=== PATIENT | male | born 2000 | race Caucasian/White ===

== ENCOUNTER → 2020-10-04 13:55 | Outpatient (BNVA) | payer MEDICAID, SELFPAY | PROVIDERS: Visit Provider Counselor Professional | DX: F33.8 Other recurrent depressive disorders (principal); Z63.9 Problem related to primary support group, unspecified | CPT/HCPCS: 90791 ==

== ENCOUNTER → 2020-11-15 08:36 | Outpatient (BNVA) | payer MEDICAID, SELFPAY | PROVIDERS: Visit Provider Psychiatry & Neurology Psychiatry | DX: F33.9 Major depressive disorder, recurrent, unspecified (principal) | CPT/HCPCS: 90792 ==

== ENCOUNTER → 2021-01-03 15:50 | Outpatient (BNVA) | payer MEDICAID, SELFPAY | PROVIDERS: Visit Provider Psychiatry & Neurology Psychiatry | DX: F33.9 Major depressive disorder, recurrent, unspecified (principal) | CPT/HCPCS: 99214 ==

== ENCOUNTER → 2021-03-07 13:22 | Outpatient (BNVA) | payer MEDICAID, SELFPAY | PROVIDERS: Visit Provider Nurse Practitioner Family | DX: Z20.822 Contact with and (suspected) exposure to COVID-19 (principal) | CPT/HCPCS: 87635 ==

== ENCOUNTER → 2021-03-13 13:31 | Outpatient (BNVA) | payer MEDICAID, SELFPAY | PROVIDERS: Visit Provider Counselor Mental Health | DX: F33.1 Major depressive disorder, recurrent, moderate (principal) | CPT/HCPCS: 90832 ==

== ENCOUNTER → 2021-04-10 16:00 | Outpatient (BNVA) | payer MEDICAID, SELFPAY | PROVIDERS: Visit Provider Counselor Mental Health | DX: F33.1 Major depressive disorder, recurrent, moderate (principal) | CPT/HCPCS: 90834 ==

== ENCOUNTER → 2021-05-20 09:58 | Outpatient (BNVA) | payer MEDICAID, SELFPAY | PROVIDERS: Visit Provider Counselor Mental Health | DX: F33.1 Major depressive disorder, recurrent, moderate (principal) | CPT/HCPCS: 90834 ==

== ENCOUNTER 2021-06-12 15:47 | Inpatient (IN) | payer MEDICAID, SELFPAY ==
[2021-06-12 15:54] VITALS: BP 132/80; PULSE 83; RESP 17; TEMP 36.9; O2SAT 96; BMI 29.1
--- NOTE | 2021-06-12 16:02 | W.ED.PSYCHS ---
HPI - Psych General: Chief Complaint: Psychiatric Symptoms Stated Complaint: PLANS ON HURTING SELF Time Seen by Provider: 06/12/21 15:49 Source: patient Mode of arrival: ambulatory Limitations: no limitations History of Present Illness: Patient is a 20-year-old male who presents to ED today with a complaint of depression and suicidal ideations. Patient states he has felt depressed for years with intermittent vague suicidal thoughts. He states several years ago he used to do a lot of self harming/cutting behavior. Patient states he treats his depression with Lexapro prescribed by psychiatrist at [facility]. He also has a therapist there. He states yesterday his significant other of 4 years decided she was leaving. She states she took their 3 children. Patient states since then he has been having constant and worsening suicidal thoughts and states he has a plan to buy a gun and kill himself. Patient states he has never been hospitalized for psychiatric complaints previously. MD complaint: suicidal ideation and feels depressed Onset (ago): hour(s) Duration: constant Context: significant life stressor Associated psychiatric symptoms: depression and suicidal ideation Associated symptoms: Reports depression and suicidal ideation; Deny auditory hallucinations, visual hallucinations or homicidal ideation Treatments prior to arrival: none If self harm: admits thoughts of self harm and has plan Review of Systems Const: Denies: fever(s) or chills Card: Denies: chest pain, palpitations, lightheadedness or syncope Resp: Denies: dyspnea GI: Denies: abdominal pain, nausea, vomiting or diarrhea Skin/Breast: Denies: rash Neuro: Denies: headache(s) Psych: Reports: depression and suicidal ideation; Denies: paranoia, visual hallucinations, auditory hallucinations or homicidal ideation [facility] PFSH: Medical History Psychiatric care Social History Smoking and tobacco status: current every day smoker e-cigarettes E-Cigarette Details: vaporizer device Physical Exam Const: COMMON NORMALS: no acute distress, patient oriented x3, alert and well nourished GENERAL APPEARANCE: cooperative and well kempt Resp: COMMON NORMALS: normal respiratory effort and clear to auscultation bilaterally AUSCULTATION: clear to auscultation bilaterally Cardio: COMMON NORMALS: regular rate and regular rhythm RATE: regular rate RHYTHM: regular rhythm Neuro: COMMON NORMALS: patient oriented x3 SENSORIUM/ORIENTATION: Yes alert Psych: COMMON NORMALS: mental status grossly normal, Normal thought process present, cooperative, speech normal, activity/motor behavior normal, denies hallucinations and denies homicidal ideation APPEARANCE: Yes grossly normal and Yes well kempt ATTITUDE: Yes calm ACTIVITY/MOTOR BEHAVIOR: No psychomotor agitation and Yes Avoids eye contact (attititude/behavior) SPEECH: Yes normal speech MOOD & AFFECT: Yes Flat affect present THOUGHT PROCESS: Normal thought process present THOUGHT CONTENT: Yes Normal thought content present ATTENTION/CONCENTRATION: Yes attention grossly intact and Yes concentration grossly intact MEMORY/COGNITION: Yes memory grossly intact and Yes cognition grossly intact INSIGHT: Good insight present (Psych) JUDGEMENT: Good judgement present (Psych) Course Consultations: Consultation #1: Dr. Gutiérrez-accepts to NPU; requests/agrees with decision for affidavit Vital Signs: Vital signs: Vital Signs Temperature 98.5 F 06/12/21 15:54 Pulse Rate 83 06/12/21 15:54 Respiratory Rate 17 06/12/21 15:54 Blood Pressure 132/80 06/12/21 15:54 Pulse Oximetry 96 06/12/21 15:54 MDM - Psych Medical Decision Making Patient will be admitted to NPU per Dr. Gutiérrez. Quinnidavit placed on chart. Lab Data : 06/12/21 16:30 06/12/21 16:30 Laboratory Results WBC 6.9 10^3/uL (4.0-10.0) 06/12/21 16:30 RBC 5.52 10^6/uL (4.1-5.3) H 06/12/21 16:30 Hgb 16.5 g/dL (11.7-16.6) 06/12/21 16:30 Hct 48.0 % (42.0-52.0) 06/12/21 16:30 MCV 87.0 fl (80-94) 06/12/21 16:30 MCH 29.9 pg (28.0-34.0) 06/12/21 16:30 MCHC 34.4 g/dL (30.0-36.0) 06/12/21 16:30 RDW 12.6 % (12.1-15.1) 06/12/21 16:30 Plt Count 270 10^3/cmm (130-400) 06/12/21 16:30 MPV 9.1 fL (7.4-10.4) 06/12/21 16:30 Neut % (Auto) 65.8 % 06/12/21 16:30 Lymph % (Auto) 24.2 % 06/12/21 16:30 [place] % (Auto) 8.2 % 06/12/21 16:30 Eos % (Auto) 1.0 % 06/12/21 16:30 Baso % (Auto) 0.7 % 06/12/21 16:30 Neut # (Auto) 4.54 10^3/uL (1.8-7.7) 06/12/21 16:30 Lymph # (Auto) 1.7 10^3/uL (0.8-4.8) 06/12/21 16:30 Kent # (Auto) 0.6 10^3/uL (0.2-0.9) 06/12/21 16:30 Eos # (Auto) 0.1 10^3/uL (0.0-0.8) 06/12/21 16:30 Baso # (Auto) 0.1 10^3/uL (0.0-0.1) 06/12/21 16:30 Nucleated RBC % (auto) 0 % 06/12/21 16:30 Nucleated RBCs # 0.0 /100WBC 06/12/21 16:30 Urine Opiates Screen Negative ng/mL (Negative) 06/12/21 16:30 Ur Barbiturates Screen Negative ng/mL (Negative) 06/12/21 16:30 Ur Phencyclidine Scrn Negative ng/mL (Negative) 06/12/21 16:30 Ur Amphetamines Screen Negative ng/mL (Negative) 06/12/21 16:30 U Benzodiazepines Scrn Negative ng/mL (Negative) 06/12/21 16:30 Urine Cocaine Screen Negative ng/mL (Negative) 06/12/21 16:30 U Marijuana (THC) Screen Negative ng/mL (Negative) 06/12/21 16:30 Discharge Plan Discharge Patient Disposition: Admitted As Inpatient Clinical Impression: Suicidal ideation Condition: Stable Coding Level of Care Code ED Promotions Associate for Michael Fwd Exam Expanded Problem Focused
[2021-06-12 16:36] LABS: Basophils # 0.1 10^3/uL (0.0-0.1); Basophils % 0.7 %; Eosinophils # 0.1 10^3/uL (0.0-0.8); Hemoglobin 16.5 g/dL (11.7-16.6); Lymphocytes # 1.7 10^3/uL (0.8-4.8); Lymphocytes % 24.2 %; Mean Corpuscular HGB Conc 34.4 g/dL (30.0-36.0); Mean Corpuscular Hemoglobin 29.9 pg (28.0-34.0); Mean Platelet Volume 9.1 fL (7.4-10.4); Monocytes # 0.6 10^3/uL (0.2-0.9); Monocytes % 8.2 %; Neutrophils # 4.54 10^3/uL (1.8-7.7); Neutrophils % 65.8 %; Nucleated Red Blood Cells % 0 %; Platelet Count 270 10^3/cmm (130-400); Red Blood Count 5.52 10^6/uL (4.1-5.3); Red Cell Distribution Width 12.6 % (12.1-15.1); White Blood Count 6.9 10^3/uL (4.0-10.0)
[2021-06-12 16:51] LABS: Amphetamines Screen Urine Negative (Negative); Barbiturates Screen Urine Negative (Negative); Benzodiazepines Screen Urine Negative (Negative); Cocaine Screen Urine Negative (Negative); Opiate Screen Urine Negative (Negative); PCP Screen Urine Negative (Negative); THC Screen Urine Negative (Negative)
[2021-06-12 16:58] LABS: Alanine Aminotransferase 20 U/L (0-41); Alkaline Phosphatase 62 IU/L (40-130); Anion Gap 14.9 (5-19); Aspartate Amino Transferase 19 U/L (0-40); Blood Urea Nitrogen 14 mg/dL (6-20); Calcium 9.8 mg/dL (8.5-10.5); Carbon Dioxide 24 mmol/L (22-29); Chloride 103 mmol/L (98-107); Globulin 2.4 g/dL (1.3-4.6); Glomerular Filtration Rate 142.4 mL/min (90-130); Glucose 96 mg/dL (65-115); Osmolality Calculated 286 mOsm/kg (285-295); Potassium 3.9 mmol/L (3.5-5.1); Salicylate 0.5 mg/dL (3-10); Sodium 138 mmol/L (136-145); Total Bilirubin 0.5 mg/dL (0.15-1.2); Total Protein 7.4 g/dL (6.6-8.7)
[2021-06-12 16:59] LABS: Acetaminophen < 5.0 ug/mL (10-30); Alcohol Level < 10 mg/dL (0-10)
[2021-06-12 17:51] VITALS: BP 112/76; PULSE 75; RESP 17; TEMP 36.7; O2SAT 96
[2021-06-12 18:02] VITALS: BP 119/76; PULSE 74; RESP 17; O2SAT 97
[2021-06-12 21:06] VITALS: BP 111/58; PULSE 81; RESP 17; TEMP 36.4; O2SAT 99
[2021-06-13 06:00] VITALS: BP 101/67; PULSE 90; RESP 17; TEMP 36.7; O2SAT 97
[2021-06-13 08:50] VITALS: PULSE 78; RESP 16; O2SAT 98
[2021-06-13] MEDS: escitalopram 10 mg Tablet 20 MG PO (09:06)
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
[2021-06-13] MEDS: OLANZapine 5 mg ODT PO (13:58)
[2021-06-13 13:59] VITALS: BP 119/85; PULSE 100; RESP 18; TEMP 36.4; O2SAT 98
--- NOTE | 2021-06-13 14:17 | PC.NURSE ---
Pt presents with agitation at this time, administered a 5mg zyprexa zydis.
--- NOTE | 2021-06-13 16:09 | PC.SOCIAL ---
Patient attended and participated in group.
[2021-06-13 20:37] VITALS: BP 102/57; PULSE 85; RESP 17; TEMP 36.6; O2SAT 98
[2021-06-13] MEDS: trazodone 50 mg Tablet PO (21:13)
--- NOTE | 2021-06-13 21:50 | PC.NURSE ---
PRN Medication Patient requested medication to help him sleep. Trazadone was given
[2021-06-14 06:00] VITALS: BP 111/66; PULSE 104; RESP 20; TEMP 36.6; O2SAT 95
[2021-06-14] MEDS: escitalopram 10 mg Tablet 40 MG PO (08:43)
--- NOTE | 2021-06-14 12:00 | P.NPUPN_ITS ---
Subjective NPU Subjective: He talked to his briefly last night. The talked more about the plan for their divorce. He is going to live in a camper on his grandmother's property until he can get his own place. He hopes to go back to his old job where he can now make $17 an hour. For now he will work on finishing his semester of college and watch his children. His is going to try to get a more regular schedule. He said that he is settling into the situation and is getting more settled in his mind. He said that his grandmother will come and pick him up tomorrow. Mental Status Exam MSE Comments: This is a overweight 20-year-old male who appears approximately his stated age and is in no acute distress. He is well groomed with a full hou and his hair pulled back in a bun. He is dressed in hospital scrubs. He is fairly well groomed. psychomotor activity is normal. Speech is at a regular rate and rhythm, normal volume, good articulation, not pressured. Alert, oriented X3 Attention and concentration appears to be normal. Memory is intact Mood is depressed but better Affect is mildly dysphoric. Thought process is logical and goal-directed. Thought content: Denies auditory and visual hallucinations. No delusions or paranoia are noted. No current suicidal ideation, and no homicidal ideation. Fund of knowledge is average. Insight and judgment appear to be fairly good. Impulse control is fairly good. Cognition: Patient Appearance: Appropriate Level of Consciousness: Awake, Alert, Appropriate and Follows Commands Patient Cognition Impaired: No Ability to Follow Directions: Good Patient Orientation (long list): Person, Place, Age and Birthday Comprehension Ability: Understands Concepts Hallucination Type: None Delusion Description: Not Present Thought Process: Appropriate Affect: Affect Description: Appropriate and Calm Behavior: Patient Behavior: Appropriate and Cooperative Speech Pattern: Appropriate and Clear Vitals/I&O/Wt Last Vital Signs Temp 97.8 F 06/14/21 06:00 Pulse 104 H 06/14/21 06:00 Resp 20 H 06/14/21 06:00 BP 111/66 06/14/21 06:00 Pulse Ox 95 06/14/21 06:00 Weight last 48 hrs Weight 97.522 kg Data NPU : 06/12/21 16:30 04/13/22 16:30 A&P Assessment and plan (1) Suicidal ideation: Status: Acute (2) Major depressive disorder: Status: Acute (3) Anxiety disorder: Status: Acute (4) Partner relational problem: Status: Acute Plan This is a 20-year-old male with a significant history of depression and anxiety who broke up with his fianc?e and mother of 3 children. He said he had a plan to go and purchase a gun and shoot himself. Plan: 1. Continue current medication. Increase Lexapro to 40 mg daily 2. Continue every 15 minute checks for safety. 3. Encourage individual, group and milieu therapies. 4. Encourage sober living treatment after discharge at the highest level of care to which he is willing to commit. 5. We will monitor for safety for himself in the community prior to discharge. Involuntary Hold Information 96 Hour Hold: 96 Hour Involuntary Admission: No Attestations NPU Medical Necessity Statement*: Inpatient hospitalization is medically necessary and the clinically appropriate intervention at this time. We will initiate medications and make changes as indicated. Coding Level of Care Code Acute Commercial Mortgage Broker for Michael Arellano Diagnoses Suicidal ideation R45.851 Major depressive disorder F32.9 Anxiety disorder F41.9 Partner relational problem Z63.0
[2021-06-14 14:00] VITALS: BP 127/81; PULSE 93; RESP 18; TEMP 36.6; O2SAT 97
--- NOTE | 2021-06-14 16:54 | PC.SOCIAL ---
Patient attended and participated in group.
[2021-06-14 20:21] VITALS: BP 154/74; PULSE 73; RESP 18; O2SAT 98
[2021-06-14] MEDS: trazodone 50 mg Tablet PO ×2 (20:36→22:53)
--- NOTE | 2021-06-15 00:56 | PC.NURSE ---
2253-Rec'd trazodone for sleep. It was effective.
[2021-06-15 06:00] VITALS: BP 92/50; PULSE 64; RESP 16; O2SAT 97
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
[2021-06-15] MEDS: escitalopram 10 mg Tablet 40 MG PO (08:38)
[2021-06-15 11:14] VITALS: BP 92/50; PULSE 64; RESP 16; O2SAT 97
== END 2021-06-15 11:45 | disposition home or self-care (01) | DRG 881 ==
LOC: ER 16:41 → NP 17:13
PROVIDERS: Admitting Provider Psychiatry & Neurology Psychiatry; Emergency Provider Physician Assistant; Visit Provider Psychiatry & Neurology Psychiatry
DX: F32.9 Major depressive disorder, single episode, unspecified (principal); R45.851 Suicidal ideations; F17.290 Nicotine dependence, other tobacco product, uncomplicated; F41.9 Anxiety disorder, unspecified; Z63.0 Problems in relationship with spouse or partner
CPT/HCPCS: 80053; 80306; 80307; 85025; 97150; 97165; 99285